=== PATIENT | male | born 1985 | race Native Hawaiian/Other Pacific Islander ===

== ENCOUNTER → 2017-01-08 | Outpatient (REF) | payer OTHER ==
[2017-01-11 00:07] LABS: D001-IgE D pteronyssinus 1.83 kU/L (Class III); E001-IgE Cat Epith/Dander 2.15 kU/L (Class III); E005-IgE Dog Dander 1.69 kU/L (Class III); M001-IgE Penicillium chrysogen < 0.10 kU/L (Class 0); M002 IgE Cladosporium herbaru < 0.10 kU/L (Class 0); M003 IgE Aspergillus fumigatu < 0.10 kU/L (Class 0); M006-IgE Alternaria alternata < 0.10 kU/L (Class 0); T001-IgE Maple/Box Elder 1.94 kU/L (Class III); T003-IgE Common Silver Birch 3.57 kU/L (Class III); T007-IgE Oak, White 1.32 kU/L (Class II); T015-IgE Ash, White 7.76 kU/L (Class IV); W001-IgE Ragweed, Short 0.59 kU/L (Class II); W009-IgE Plantain, English 0.83 kU/L (Class II); W014-IgE Pigweed, Rough 1.76 kU/L (Class III); W018-IgE Sheep Sorrel 0.62 kU/L (Class II)
== END ==
LOC: M LAB REF 12:59
PROVIDERS: ATTEND Nurse Practitioner Adult Health
DX: J45.40 Moderate persistent asthma, uncomplicated (principal)

== ENCOUNTER 2017-03-06 19:21 | Emergency (ER) | payer OTHER ==
[~2017-03-06] VITALS: Ht 172.7 cm; Wt 89.3 kg
[2017-03-06] MEDS ORDERED: ALBU17IN INH (19:36)
[2017-03-06] MEDS ORDERED: IBUP-1114 PO (19:36)
[2017-03-06] MEDS ORDERED: ADVA115A INH (19:36)
[2017-03-06] MEDS ORDERED: METH1TAB40 PO (19:36)
[2017-03-06 21:17] VITALS: BP 124/71
--- NOTE | 2017-03-07 00:53 | REP ---
Clinical: Trauma . Technique: Internal rotation, external rotation, and Y view right shoulder . Findings: No acute fracture or dislocation. The acromioclavicular and glenohumeral joints are intact. No periarticular calcifications or degenerative changes are appreciated. Sub acromial space is normal. Surrounding soft tissues are unremarkable. Impression: Normal right shoulder radiographs. Signed by Robby Merida MD 03/07/2017 12:45 A
== END 2017-03-06 21:19 | disposition home or self-care (01) ==
LOC: M ED 20:47
DX: S40.011A Contusion of right shoulder, initial encounter (principal); W19.XXXA Unspecified fall, initial encounter; Y92.139 Unspecified place military base as the place of occurrence of the external cause; Y93.02 Activity, running; Y99.1 Military activity; Z79.899 Other long term (current) drug therapy